=== PATIENT | male | born 1985 | race Caucasian/White ===

== ENCOUNTER 2018-05-02 20:18 | Emergency (ER) | payer OTHER | END 2018-05-02 22:00 | disposition home or self-care (01) | LOC: FTE 20:18 | DX: Z76.0 Encounter for issue of repeat prescription (principal); J45.909 Unspecified asthma, uncomplicated | CPT/HCPCS: 99281; Z7502 ==

== ENCOUNTER 2018-05-26 22:58 | Emergency (ER) | payer OTHER | END 2018-05-27 00:40 | disposition home or self-care (01) | LOC: FTE 22:58 | DX: Z76.0 Encounter for issue of repeat prescription (principal); J45.909 Unspecified asthma, uncomplicated | CPT/HCPCS: 99281; Z7502 ==

== ENCOUNTER 2018-06-26 20:10 | Emergency (ER) | payer SELFPAY, OTHER | END 2018-06-26 21:19 | disposition left against medical advice (07) | LOC: FTE 20:10 | DX: Z53.21 Procedure and treatment not carried out due to patient leaving prior to being seen by health care provider (principal) ==